=== PATIENT | female | born 1950 | race African-American/Black ===

== ENCOUNTER 2017-02-06 14:37 | Inpatient (IN) | payer OTHER, BC ==
[~2017-02-06] VITALS: Ht 162.6 cm; Wt 102.1 kg
--- NOTE | ~2017-02-06 | EKG ---
[place] [address] [address] [place] [address] ELECTROCARDIOGRAM REPORT Name: MAXIMO GREENNAMILTON Room #: 213-P ADM IN M.R.#: [id number] Admission: 02/06/17 Attend Phys: Aydee Payne Discharge: Date of : 54 Report #: [id number] THIS REPORT FOR: //name// [facility] Test Date: 2017-02-06 Test Time: 22:14:58 Pat Name: MILTON ROBLES Department: Room: 213 P Gender: F Detective Captain: Freddie DARLING : 1950 Requested By: Mavis Etienne Order Number: [id number] MD: Measurements Intervals [place] Rate: 180 P: AK: QRS: 40 QRSD: 63 T: QT: 269 QTc: 466 Interpretive Statements Atrial fibrillation with rapid V-rate Borderline low voltage, extremity leads Repolarization abnormality, prob rate related Compared to ECG 06/27/2006 10:10:22 Early repolarization now present Sinus rhythm no longer present First degree AV block no longer present T-wave abnormality no longer present Possible ischemia no longer present [email or web address] By: 2214 2214 [place], [place] /[facility]
--- NOTE | ~2017-02-06 | EKG ---
[place] [address] [address] [facility] [place] [address] ELECTROCARDIOGRAM REPORT Name: MAXIMO TRAVISMILTON Room #: 213-P ADM IN M.R.#: [id number] Admission: 02/06/17 Attend Phys: Nelson Maxwell DO Discharge: Date of : 54 Report #: [id number] THIS REPORT FOR: //name// [facility] Test Date: 2017-02-08 Test Time: 13:00:04 Pat Name: MILTON ROBLES Department: Room: 213 Gender: F [employer]: Zina HICKMAN : 1950 Requested By: Amilcar Mayorga Order Number: [id number] MD: Amilcar Mayorga Measurements Intervals [place] Rate: 96 P: 3 MA: 223 QRS: 19 QRSD: 71 T: QT: 331 QTc: 419 Interpretive Statements Sinus tachycardia Ventricular trigeminy Prolonged MA interval Nonspecific T abnormalities, diffuse leads Compared to ECG 02/06/2017 22:14:58 Ventricular premature complex(es) now present First degree AV block now present T-wave abnormality now present Atrial fibrillation no longer present Early repolarization no longer present Electronically Signed On 02-08-2017 21:00:47 CDT by Amilcar Mayorga [email or web address] <ELECTRONICALLY SIGNED> By: Amilcar Mayorga MD 02/08/17 2100 1300 1300 Amilcar Mayorga MD /EPI
--- NOTE | ~2017-02-06 | 2DMMODE ---
[facility] [address] [place] [address] 2 D/M-MODE ECHOCARDIOGRAM Name: MAXIMO ROBLESMILTON Adolfo Room #: 213-P ADM IN M.R.#: [id number] Admission: 02/06/17 Attend Phys: Aydee Morley Discharge: Date of : 54 Date of Service: 02/07/17 1008 Report #: [id number] THIS REPORT FOR: //name// APPROVED REPORT Study performed: 02/07/2017 08:07:58 EXAM: Comprehensive 2D, Doppler, and color-flow Echocardiogram Patient Location: Bedside Room #: 213 Status: routine Other Information Study Quality: Fair Indications Atrial Fibrillation 2D Dimensions RVDd: 41.10 mm LVEF(%): 60.04 (>50%) IVSd: 10.65 (7-11mm) LVOT Diam: 18.88 (18-24mm) LVDd: 39.51 mm PWd: 9.45 (7-11mm) Ascending Ao: 30.30 (22-36mm) LVDs: 27.06 (25-40mm) Aortic Root: 26.54 mm Angeles's LVEF: 60.04 % Volumes Left Atrial Volume (Systole) Single Plane 4CH: 45.87 mL Single Plane 2CH: 67.51 mL LA ESV Index: 32.00 mL/m2 Aortic Valve AoV Peak Sergey.: 1.44 m/s AO Peak Gr.: 8.29 mmHg LVOT Max P.18 mmHg LVOT Max V: 1.24 m/s DEWEY Vmax: 2.42 cm2 Mitral Valve MV E Max Sergey.: 1.22 m/s IVRT: 55.36 ms Pulmonary Valve PV Peak Sergey.: 1.34 m/s PV Peak Gr.: 7.23 mmHg [facility] [place] [place] [address] 2 D/M-MODE ECHOCARDIOGRAM Name: MAXIMO ROBLESMILTON Room #: 213-P [facility] IN M.R.#: [id number] Admission: 02/06/17 Attend Phys: Aydee Morley Discharge: Date of : 54 Date of Service: 02/07/17 1008 Report #: [id number] Tricuspid Valve RAP Estimate: 5.00 mmHg Left Ventricle The left ventricle is normal size. There is normal LV segmental wall motion. There is normal left ventricular wall thickness. The left ventricular systolic function is normal. The left ventricular ejection fraction is within the normal range. LVEF is 55-60%. This study is not technically sufficient to allow evaluation of the LV diastolic function due to atrial fibrillation. Right Ventricle The right ventricle is normal size. The right ventricular systolic function is normal. Atria The left atrium size is normal. The right atrium size is normal. Aortic Valve Aortic valve leaflets are mildly thickened. Trace aortic regurgitation. There is no aortic valvular stenosis. Mitral Valve The mitral valve is normal in structure. Trace mitral regurgitation. No evidence of mitral valve stenosis. Tricuspid Valve The tricuspid valve is normal in structure. There is trace tricuspid regurgitation. The right atrial pressure is estimated at 5 mmHg. Pulmonic Valve The pulmonary valve is normal in structure. There is no pulmonic valvular regurgitation. Great Vessels The aortic root is normal in size. The ascending aorta is normal in size. IVC is normal in size and collapses >50% with inspiration. Pericardium There is no pericardial effusion. <Conclusion> The left ventricle is normal size. [facility] [place] [address] 2 D/M-MODE ECHOCARDIOGRAM Name: MILTON CHERRY Room #: 213-P ADM IN M.R.#: [id number] Admission: 02/06/17 Attend Phys: Aydee Morley Discharge: Date of : 54 Date of Service: 02/07/17 1008 Report #: [id number] LVEF is 55-60%. Aortic valve leaflets are mildly thickened. Trace aortic regurgitation. The tricuspid valve is normal in structure. There is trace tricuspid regurgitation. The right atrial pressure is estimated at 5 mmHg. <ELECTRONICALLY SIGNED> By: Suhail Ackerman MD 02/07/17 1008 1008 Suhail Ackerman MD /INF
--- NOTE | ~2017-02-06 | EKG ---
[place] [address] [address] [address] ELECTROCARDIOGRAM REPORT Name: MILTON CHERRY Room #: 213-P ADM IN M.R.#: [id number] Admission: 02/06/17 Attend Phys: Aydee Payne Discharge: Date of : 54 Report #: [id number] THIS REPORT FOR: //name// [facility] Test Date: 2017-02-06 Test Time: 22:14:58 Pat Name: MILTON ROBLES Department: Room: 213 P Gender: F [employer] Evaluation Supervisor: Freddie DARLING : 1950 Requested By: Mavis Etienne Order Number: [id number] MD: Mir Barroso Measurements Intervals [place] Rate: 180 P: MT: QRS: 40 QRSD: 63 T: QT: 269 QTc: 466 Interpretive Statements Atrial fibrillation with rapid V-rate Borderline low voltage, extremity leads Repolarization abnormality, prob rate related Compared to ECG 06/27/2006 10:10:22 atrial fibrillation has replaced sinus rhythm Nonspecific change in the ST and T-wave segments Electronically Signed On 02-07-2017 7:58:06 CDT by Mir Barroso [email or web address] <ELECTRONICALLY SIGNED> By: Mir Barroso MD, [facility] 02/07/17 0758 2214 2214 Mir Barroso MD, [facility] /EPI
--- NOTE | ~2017-02-06 | HC ---
[facility] [place] [address] CONSULTATION Name: MILTON CHERRY Room #: 213-P ADM IN M.R.#: [id number] Admission: 02/06/17 Attend Phys: Nelson Maxwell DO Discharge: Date of : 54 Report #: [id number] THIS REPORT FOR: //name// CC: Sunny Maxwell CARDIOLOGY CONSULTATION REASON FOR CONSULTATION: Atrial fibrillation. HISTORY OF PRESENT ILLNESS: The patient is a 66-year-old admitted with fevers, chills and found to have pyelonephritis once admitted to the ICU. She went into AFib with rapid ventricular response. Therefore, we were consulted. REVIEW OF SYSTEMS: GENERAL: The patient has been having some fevers and chills. HEENT: No blurred vision. CARDIOVASCULAR: No chest pain or shortness of breath. PULMONARY: No productive cough. GASTROINTESTINAL: She has been having some nausea, vomiting and some abdominal discomfort. GENITOURINARY: She has been having urinary frequency, but no dysuria. MUSCULOSKELETAL: She has had some muscle aches and pains. NEUROLOGIC: No focal weakness or headaches. PAST MEDICAL HISTORY: Includes diabetes mellitus. SOCIAL HISTORY: Does not smoke. FAMILY HISTORY: Noncontributory. ALLERGIES: Include HYDROCODONE. HOME MEDICATIONS: Include ibuprofen, acetaminophen, metformin and gabapentin. PHYSICAL EXAMINATION: VITAL SIGNS: Temperature is 38.3, pulse 110, respirations 16, blood pressure 137/72 and sats 95%. GENERAL: On physical, no acute distress. HEENT: Oropharynx is clear. NECK: Supple, with no thyromegaly. HEART: Irregularly irregular, tachycardic. No murmurs heard. LUNGS: Clear bilaterally. ABDOMEN: Soft, nontender and nondistended. EXTREMITIES: There is no clubbing, cyanosis or edema. NEUROLOGIC: Cranial nerves 2-12 are intact. [facility] [address] [place] [address] CONSULTATION Name: MILTON CHERRY Room #: 213-P ADM IN [facility]#: [id number] Admission: 02/06/17 Attend Phys: Nelson Maxwell, Discharge: Date of : 54 Report #: [id number] LABORATORY DATA: White count 16, hemoglobin 10 and platelets 234,000. Coags: INR 1.0. Chemistry: Creatinine 1.6, potassium 3.8. Chest x-ray, no acute process. Her echo was being performed while I examined the patient and it appears that she has normal LV size and function. EKG shows AFib. Telemetry shows AFib. ASSESSMENT: 1. Atrial fibrillation with rapid ventricular response. 2. Pyelonephritis. 3. Sepsis. 4. Diabetes. PLAN: In summary, the patient is a 66-year-old with diabetes, presenting with pyelonephritis, fever and new-onset atrial fibrillation. AFib is probably secondary to the ongoing infection. We will optimize her rate control. We will review the echo results and we will heparinize the patient. We will follow. <ELECTRONICALLY SIGNED> By: Amilcar Mayorga MD 02/12/17 0830 0859 1126 Amilcar Mayorga MD /nt
--- NOTE | ~2017-02-06 | HC ---
[facility] [place] [address] CONSULTATION Name: MAXIMO ROBLESMILTON Room #: 213-P ADM IN M.R.#: [id number] Admission: 02/06/17 Attend Phys: Nelson Maxwell DO Discharge: Date of : 54 Report #: [id number] THIS REPORT FOR: //name// CC: Sunny Payne REASON FOR CONSULTATION: I was asked to evaluate the patient concerning sepsis with high fever, leukocytosis and suspected urinary tract infection. HISTORY OF PRESENT ILLNESS: The patient is a 66-year-old who presented to the emergency room with a 5-day history of intermittent fever, chills, sweats, right-sided abdominal pain, low back pain and developed shortness of breath. She has had nausea and some vomiting. No diarrhea. She has had urinary incontinence, but no report of dysuria or frequency. No history of urinary tract infections or nephrolithiasis. Intermittent cough. No sputum production. No pleuritic chest pain. Following admission through the emergency room, she had temperature of 103.2. She developed atrial fibrillation, atrial flutter, is now on a Cardizem drip. She was started on ceftriaxone following urine culture. ALLERGIES: She is allergic to HYDROCODONE. MEDICATIONS: As noted on her MAR, previously on Neurontin, Glucophage, Tylenol and Motrin. PAST MEDICAL HISTORY: Lumbar surgery in November of this year, diabetes, bilateral rotator cuff surgery. FAMILY HISTORY: Diabetes. SOCIAL HISTORY: Nonsmoker, no significant alcohol intake. Retired from [employer]. She has had traveled to [place] within the last 3 weeks. No HIV risk factors. REVIEW OF SYSTEMS: As noted above with no arthritis or rash. PHYSICAL EXAMINATION: VITAL SIGNS: Temperature is 102 degrees. She is tachycardic. Blood pressure is stable, a bit lethargic, obese. SKIN: No skin rashes. NECK: No adenopathy. HEENT: Unremarkable. NECK: Supple. LUNGS: Clear. HEART: Tachycardic and regular. ABDOMEN: Soft, mild lower abdominal tenderness mostly on the right, mild right CVA tenderness. EXTREMITIES: Unremarkable, indwelling Henderson catheter. [facility] [address] [place] [address] CONSULTATION Name: MILTON CHERRY Room #: 213-P ADM IN .R.#: [id number] Admission: 02/06/17 Attend Phys: Nelson Maxwell DO Discharge: Date of : 54 Report #: [id number] RECTAL: Not performed. NEUROLOGIC: Normal. LABORATORY STUDIES: Sodium 131, potassium 3.8, bicarbonate of 19, creatinine 1.6. Blood glucose initially over 600, now 200 range, alkaline phosphatase 204. Liver function tests otherwise normal. Hemoglobin 10.2, platelet count 234,000, white count 16,000 with 76% segs, 6% bands. Urinalysis, 6-15 wbc's, few RBCs, moderate bacteria. Urine culture, gram-negative bacilli. No blood cultures obtained. Chest x-ray clear. CT abdomen, straining of the kidneys, right greater than left, small nonobstructing nephrolithiasis on the right. IMPRESSION: A 66-year-old diabetic with sepsis, suspect urinary tract source despite only a few WBCs on her urinalysis. May have passed the stone along the way, where she does have a nonobstructing stone in the right kidney. She has associated atrial fibrillation/flutter. Recommend obtaining blood cultures. We will repeat her urinalysis. Continue gram-negative coverage, fluid resuscitation. <ELECTRONICALLY SIGNED> By: Jerardo Peralta MD 02/08/17 0948 1758 Jerardo Peralta MD /nt
--- NOTE | ~2017-02-06 | EKG ---
[address] [place] [address] ELECTROCARDIOGRAM REPORT Name: MAXIMO ROBLESMILTON Room #: 213- ADM IN M.R.#: [id number] Admission: 02/06/17 Attend Phys: Nelson Maxwell DO Discharge: Date of : 54 Report #: [id number] THIS REPORT FOR: //name// [facility] Test Date: 2017-02-08 Test Time: 11:12:08 Pat Name: MILTON ROBLES Department: Room: 213 Gender: F Lobster Man: Zina HICKMAN : 1950 Requested By: Amilcar Mayorga Order Number: [id number] MD: Amilcar Mayorga Measurements Intervals [place] Rate: 83 P: -17 FL: 232 QRS: 12 QRSD: 55 T: QT: 403 QTc: 474 Interpretive Statements Sinus rhythm Prolonged [place] interval Borderline low voltage, extremity leads Compared to ECG 02/06/2017 22:14:58 First degree AV block now present Atrial fibrillation no longer present Early repolarization no longer present Electronically Signed On 02-08-2017 20:57:47 CDT by Amilcar Mayorga [email or web address] <ELECTRONICALLY SIGNED> By: Amilcar Mayorga MD 02/08/17 2057 111 11 Amilcar Mayorga MD /EPI
[2017-02-06 14:47] VITALS: BP 159/73
[2017-02-06 16:58] LABS: HEMATOCRIT 35.7 % (37.0-47.0); HEMOGLOBIN 11.8 gm/dL (12.0-15.0); MANUAL DIFF YES; MCH 26.2 pg (26.0-34.0); MCV 79.4 fL (80.0-100.0); PLATELET COUNT 285 thou/uL (150-400); RDW 17.3 % (10.5-14.5); WBC 17.6 thou/uL (4.0-11.0)
[2017-02-06] MEDS ORDERED: METFORMIN HCL500 MG PO (16:58)
[2017-02-06] MEDS ORDERED: NEURONTIN 300300 M1 PO (16:59)
[2017-02-06 17:22] LABS: CALCIUM 9.9 mg/dL (8.5-10.1); POTASSIUM 4.2 mmol/L (3.5-5.1)
[2017-02-06 17:56] LABS: ABSOLUTE NEUTROPHILS 14.4 thou/uL (1.4-8.2); ANISOCYTOSIS 1+; TOTAL CELL COUNT 100
[2017-02-06 19:22] LABS: URINE BILIRUBIN NEGATIVE (Negative); URINE BLOOD 2+ (Negative); URINE COLOR YELLOW; URINE GLUCOSE-RANDOM* 3+ (Negative); URINE KETONES 1+ (Negative); URINE LEUKOCYTES-REFLEX TRACE (Negative); URINE PROTEIN (DIPSTICK) 1+ (Negative); URINE SPECIFIC GRAVITY <= 1.005 (1.003-1.035); URINE UROBILINOGEN 0.2 E.U./dl (0.2-1.0)
[2017-02-06 19:30] LABS: SQUAMOUS 0-3 Few /LPF (0-3); URINE RBC 3-10 Few /HPF (0-2); URINE WBC-REFLEX 6-15 Few /HPF (0-5)
[2017-02-06 19:31] LABS: CASTS None Seen /LPF (None Seen); CRYSTALS None Seen /LPF (None Seen)
[2017-02-06 21:35] VITALS: BP 137/84
[2017-02-06] MEDS ORDERED: IBUPROFEN 400400 M2 PO (21:52)
[2017-02-06] MEDS ORDERED: TYLENOL325 MG PO (21:53)
[2017-02-06 23:13] VITALS: BP 128/64
[2017-02-06 23:36] LABS: ALBUMIN 2.4 g/dL (3.4-5.0); ALKALINE PHOSPHATASE 204 U/L (46-116); DIRECT BILIRUBIN 0.1 mg/dL (<0.1-0.3); SGOT 30 U/L (15-37); SGPT 38 U/L (30-65); TOTAL BILIRUBIN 0.5 mg/dL (<0.1-1.0); TOTAL PROTEIN 7.9 g/dL (6.4-8.2); TROPONIN-I < 0.04 ng/mL (<0.04-0.07)
[2017-02-06 23:59] VITALS: BP 95/59
[2017-02-07 00:48] VITALS: BP 105/66
[2017-02-07 01:41] LABS: HEMATOCRIT 30.1 % (37.0-47.0); HEMOGLOBIN 10.2 gm/dL (12.0-15.0); MCH 26.1 pg (26.0-34.0); MCHC 33.8 g/dL (28.0-37.0); MCV 77.1 fL (80.0-100.0); RBC 3.91 mil/uL (4.20-5.00); RDW 16.5 % (10.5-14.5); WBC 16.1 thou/uL (4.0-11.0)
[2017-02-07 01:49] LABS: CALCIUM 8.1 mg/dL (8.5-10.1); CREATININE 1.6 mg/dL (0.6-1.0); POTASSIUM 3.8 mmol/L (3.5-5.1)
[2017-02-07 03:52] VITALS: BP 100/62
[2017-02-07 11:47] LABS: APTT 29.4 Seconds (24.5-32.8); PROTIME 10.4 Seconds (9.3-11.4)
[2017-02-07 11:53] VITALS: BP 137/72
[2017-02-07 19:50] VITALS: BP 98/62
[2017-02-07 19:50] LABS: URINE BILIRUBIN NEGATIVE (Negative); URINE BLOOD 2+ (Negative); URINE COLOR YELLOW; URINE GLUCOSE-RANDOM* NEGATIVE (Negative); URINE KETONES NEGATIVE (Negative); URINE NITRITE NEGATIVE (Negative); URINE PROTEIN (DIPSTICK) 1+ (Negative); URINE SPECIFIC GRAVITY <= 1.005 (1.003-1.035); URINE UROBILINOGEN 0.2 E.U./dl (0.2-1.0)
[2017-02-07 20:02] LABS: BACTERIA 1-9 Few /HPF (None Seen); CASTS None Seen /LPF (None Seen); CRYSTALS None Seen /LPF (None Seen); SQUAMOUS 0-3 Few /LPF (0-3); URINE WBC 6-15 Few /HPF (0-5)
[2017-02-07 20:03] LABS: URINE RBC 3-10 Few /HPF (0-2)
[2017-02-07 23:25] VITALS: BP 112/61
[2017-02-08] VITALS (8 sets, daily range): BP systolic 114–148; BP diastolic 64–85
[2017-02-08 01:57] LABS: HEMOGLOBIN 9.7 gm/dL (12.0-15.0)
[2017-02-08 01:59] LABS: HEMATOCRIT 28.6 % (37.0-47.0); MCH 26.1 pg (26.0-34.0); MCHC 33.8 g/dL (28.0-37.0); MCV 77.4 fL (80.0-100.0); PLATELET COUNT 239 thou/uL (150-400); RDW 16.8 % (10.5-14.5)
[2017-02-08 02:00] LABS: CALCIUM 7.9 mg/dL (8.5-10.1); CREATININE 1.6 mg/dL (0.6-1.0); POTASSIUM 3.7 mmol/L (3.5-5.1)
[2017-02-08 02:18] LABS: MANUAL DIFF YES
[2017-02-08 05:10] LABS: GLYCOHEMOGLOBIN (HGB A1C) 11.6 % (4.8-5.6)
[2017-02-08 05:31] LABS: ABSOLUTE NEUTROPHILS 13.4 thou/uL (1.4-8.2); ANISOCYTOSIS 1+; LARGE PLATELETS OCCASIONAL; METAMYELOCYTES 1 %; TOTAL CELL COUNT 100
[2017-02-09 00:34] VITALS: BP 157/92
[2017-02-09 03:20] VITALS: BP 170/97
[2017-02-09 04:08] LABS: CALCIUM 9.2 mg/dL (8.5-10.1); CREATININE 1.4 mg/dL (0.6-1.0); POTASSIUM 4.1 mmol/L (3.5-5.1)
[2017-02-09 04:11] LABS: HEMOGLOBIN 9.8 gm/dL (12.0-15.0)
[2017-02-09 04:14] LABS: HEMATOCRIT 29.4 % (37.0-47.0); MCH 25.9 pg (26.0-34.0); MCHC 33.4 g/dL (28.0-37.0); MCV 77.5 fL (80.0-100.0); RBC 3.79 mil/uL (4.20-5.00); RDW 17.1 % (10.5-14.5); WBC 19.9 thou/uL (4.0-11.0)
[2017-02-09 04:44] LABS: MANUAL DIFF YES; PLATELET COUNT 322 thou/uL (150-400)
[2017-02-09 06:59] LABS: ABSOLUTE NEUTROPHILS 13.3 thou/uL (1.4-8.2); ANISOCYTOSIS 2+; ATYPICAL LYMPHS 2 %; METAMYELOCYTES 2 %; TOTAL CELL COUNT 100
[2017-02-09 07:00] LABS: LARGE PLATELETS MANY
[2017-02-09 07:16] VITALS: BP 154/100
[2017-02-09 12:15] VITALS: BP 167/91
[2017-02-09 15:39] VITALS: BP 173/78
[2017-02-09 20:01] VITALS: BP 140/79
[2017-02-10 05:19] VITALS: BP 146/87
[2017-02-10 07:41] VITALS: BP 139/82
[2017-02-10 11:42] VITALS: BP 142/85
[2017-02-10 15:35] VITALS: BP 161/77
[2017-02-10 19:30] VITALS: BP 96/61
[2017-02-10 23:20] VITALS: BP 127/76
[2017-02-11 03:30] VITALS: BP 149/87
[2017-02-11 04:45] LABS: HEMOGLOBIN 8.6 gm/dL (12.0-15.0); RBC 3.29 mil/uL (4.20-5.00)
[2017-02-11 04:49] LABS: HEMATOCRIT 25.3 % (37.0-47.0); MCH 26.1 pg (26.0-34.0); MCV 76.7 fL (80.0-100.0); RDW 16.3 % (10.5-14.5); WBC 18.3 thou/uL (4.0-11.0)
[2017-02-11 04:58] LABS: CALCIUM 9.2 mg/dL (8.5-10.1); CREATININE 1.5 mg/dL (0.6-1.0)
[2017-02-11 05:04] LABS: MANUAL DIFF YES
[2017-02-11 08:18] VITALS: BP 157/85
[2017-02-11 11:01] LABS: ABSOLUTE NEUTROPHILS 12.1 thou/uL (1.4-8.2); METAMYELOCYTES 1 %; MYELOCYTES 1 %; TOTAL CELL COUNT 100
[2017-02-11 11:02] LABS: ANISOCYTOSIS 1+; HYPOCHROMASIA 2+
[2017-02-11 11:03] LABS: PLATELET COUNT 422 thou/uL (150-400)
[2017-02-11 11:29] VITALS: BP 124/61
[2017-02-11 16:26] VITALS: BP 150/85
[2017-02-11 19:20] VITALS: BP 123/70
[2017-02-12 04:22] VITALS: BP 132/82
[2017-02-12 04:36] LABS: HEMATOCRIT 24.9 % (37.0-47.0); HEMOGLOBIN 8.5 gm/dL (12.0-15.0); MCH 25.9 pg (26.0-34.0); MCHC 33.9 g/dL (28.0-37.0); MCV 76.3 fL (80.0-100.0); PLATELET COUNT 464 thou/uL (150-400); RBC 3.27 mil/uL (4.20-5.00); RDW 16.7 % (10.5-14.5)
[2017-02-12 04:42] LABS: MANUAL DIFF YES
[2017-02-12 04:57] LABS: CALCIUM 9.1 mg/dL (8.5-10.1); CREATININE 1.4 mg/dL (0.6-1.0); POTASSIUM 3.5 mmol/L (3.5-5.1)
[2017-02-12 05:22] LABS: ABSOLUTE NEUTROPHILS 11.4 thou/uL (1.4-8.2); METAMYELOCYTES 1 %; TOTAL CELL COUNT 100
[2017-02-12 05:23] LABS: ANISOCYTOSIS 2+; LARGE PLATELETS OCCASIONAL; TARGET CELLS 2+
[2017-02-12 08:20] VITALS: BP 149/88
[2017-02-12 20:38] VITALS: BP 150/99
[2017-02-13 03:52] LABS: ABSOLUTE NEUTROPHILS 9.8 thou/uL (1.4-8.2); EOSINOPHILS 2.2 % (0.0-3.0); HEMATOCRIT 22.6 % (37.0-47.0); HEMOGLOBIN 7.6 gm/dL (12.0-15.0); LYMPHOCYTES 18.3 % (24.0-44.0); MCH 26.1 pg (26.0-34.0); MCHC 33.8 g/dL (28.0-37.0); MCV 77.3 fL (80.0-100.0); MONOCYTES 5.6 % (1.0-8.0); PLATELET COUNT 441 thou/uL (150-400); POLYS 72.9 % (36.0-66.0); RBC 2.92 mil/uL (4.20-5.00); RDW 16.2 % (10.5-14.5); WBC 13.4 thou/uL (4.0-11.0)
[2017-02-13 03:54] LABS: MANUAL DIFF NO
[2017-02-13 04:01] LABS: CALCIUM 8.8 mg/dL (8.5-10.1); CREATININE 1.2 mg/dL (0.6-1.0); POTASSIUM 4.3 mmol/L (3.5-5.1)
[2017-02-13 04:45] VITALS: BP 146/85
[2017-02-13 07:53] VITALS: BP 141/79
[2017-02-13] MEDS ORDERED: LEVAQUIN 500 M500 M1 PO (10:15)
[2017-02-13] MEDS ORDERED: METOPROLOL SUCC50 MG PO (10:15)
[2017-02-13 11:51] VITALS: BP 141/79
== END 2017-02-13 12:47 | disposition home or self-care (01) | DRG 871 ==
LOC: ER 14:37 → EROBS 19:48 → 2N 19:48
PROVIDERS: Emergency Medicine; Family Medicine; Internal Medicine Cardiovascular Disease; Internal Medicine Endocrinology, Diabetes & Metabolism; Nurse Practitioner Acute Care; Specialist
DX: A41.9 Sepsis, unspecified organism (principal); E43 Unspecified severe protein-calorie malnutrition; J18.9 Pneumonia, unspecified organism; N12 Tubulo-interstitial nephritis, not specified as acute or chronic; N17.9 Acute kidney failure, unspecified; E87.0 Hyperosmolality and hypernatremia; I48.91 Unspecified atrial fibrillation; E11.65 Type 2 diabetes mellitus with hyperglycemia; B96.20 Unspecified Escherichia coli [E. coli] as the cause of diseases classified elsewhere; E87.6 Hypokalemia; Z68.38 Body mass index [BMI] 38.0-38.9, adult; Z91.14 Patient's other noncompliance with medication regimen; Z79.84 Long term (current) use of oral hypoglycemic drugs; Z88.8 Allergy status to other drugs, medicaments and biological substances; Z83.3 Family history of diabetes mellitus
CPT/HCPCS: 10081